=== PATIENT | female | born 1985 | race Caucasian/White ===

== ENCOUNTER 2021-12-19 08:10 | Emergency (ER) | payer OTHER, SELFPAY ==
[2021-12-19 08:14] VITALS: BP 137/71; PULSE 76; RESP 18; TEMP 36.3; O2SAT 100; BMI 39.3
--- NOTE | 2021-12-19 08:21 | DI.RAD.S_ITS ---
PROCEDURE: XR CHEST 1V INDICATIONS: chest pain TECHNIQUE: One view of the chest was acquired. COMPARISON: None. FINDINGS: Surgical changes and devices: None. Lungs and pleura: Lungs are clear. No pleural effusions or pneumothorax. Mediastinum: Mediastinal contours appear normal. Heart size is normal. Bones and chest wall: No suspicious bony lesions. Overlying soft tissues appear unremarkable. IMPRESSION: No acute cardiopulmonary findings. Dictated by: Celia Martínez M.D. on 12/19/2021 at 8:52 Approved by: Celia Martínez M.D. on 12/19/2021 at 8:53
[2021-12-19 08:34] LABS: Add Manual Diff / Slide Review NO; Basophils Absolute Auto 0 /uL (0-100); Basophils Percent Auto 0.6 % (0-2); Eosinophils Absolute Auto 100 /uL (0-450); Eosinophils Percent Auto 1.2 % (2-4); Hematocrit 31.1 % (36-46); Hemoglobin 10.2 g/dL (12.0-16.0); Lymphocytes Absolute Auto 1500 /uL (1100-4500); Lymphocytes Percent Auto 24.7 % (25-40); Mean Corpuscular HGB Conc 32.8 % (30-36); Mean Corpuscular Hemoglobin 22.7 PG (26-34); Mean Corpuscular Volume 69.2 fL (80-100); Monocytes Absolute Auto 500 /uL (0-900); Neutrophils Absolute Auto 4100 /uL (1500-7000); Neutrophils Percent Auto 65.5 % (50-75); Platelet Count 274 X10^3/uL (150-400); Red Cell Distribution Width 17.7 % (11.6-14.8); White Blood Cell Count 6.2 X10^3/uL (4.5-11.0)
[2021-12-19 08:43] LABS: Alanine Aminotransferase 16 IU/L (<35); Albumin Globulin Ratio 1.4 (1.0-2.8); Alkaline Phosphatase 56 U/L (38-126); Aspartate Aminotransferase 19 IU/L (14-36); BUN Creatinine Ratio 11.8 (6-22); Bilirubin Total 0.5 mg/dL (0.2-1.3); Blood Urea Nitrogen 9 mg/dL (7-17); Calcium 8.6 mg/dL (8.4-10.2); Carbon Dioxide 23 mmol/L (22-32); Chloride 106 mmol/L (98-107); Creatine Kinase 58 U/L (30-135); Estimated Glomerular Filt Rate > 60 mL/min (>60); Globulin 2.9 g/dL (1.7-4.1); Glucose 96 mg/dL (70-100); HEMOLYSIS < 15 (0-50); Lipase 94 U/L (23-300); Magnesium 1.9 mg/dL (1.6-2.3); Potassium 3.9 mmol/L (3.4-5.1); Sodium 138 mmol/L (137-145); Total Protein 6.9 g/dL (6.3-8.2)
[2021-12-19 08:54] LABS: COVID19 -Nasal RAPID Negative (Negative)
[2021-12-19 08:54] LABS: Troponin I < 0.012 ng/mL (0.01-0.034)
[2021-12-19 09:11] LABS: D Dimer < 200 ng/mL (<230)
[2021-12-19 09:14] LABS: Microcytosis 2+
[2021-12-19 09:35] VITALS: BP 120/70; PULSE 80; RESP 18; O2SAT 98
--- NOTE | 2021-12-19 09:53 | ED_ITS ---
HPI - Chest Pain General Chief Complaint: Chest Pain Stated Complaint: Upper right chest pain- intubated rt side last yr Time Seen by Provider: 12/19/21 08:31 Source: patient Mode of arrival: Ambulatory Limitations: no limitations History of Present Illness HPI narrative: This is a 36-year-old female with history of COVID pneumonia, ARDS that developed with right-sided pleural effusion patient had a chest tube at 1 point and was intubated and hospitalized for approximately a month in February. Patient states in the past 3 days she is developed right-sided chest pain with deep inspiration that she describes being right at the subcostal border radiates towards her back it is worse with deep inspiration. It is improved if she slouches forward and is painful to lay on her side. Patient denies fevers or chills. Movement otherwise does not seem to bother such as rotation. Patient denies any cough cold or congestion. No shortness of breath. No lightheadedness or passing out. No nausea or vomiting, no issues with bowel movements. No urinary symptoms. No swelling in extremities. No syncope or lightheadedness. 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 She denies any missed doses accept once several weeks ago. She is had a D and C for molar in the past, tonsillectomy but no other surgeries. No tobacco, alcohol or illicit other than CBD at night. Patient follows with Dr. Servin for her oncology and [facility] for her primary care. Related Data Home Medications Medication Instructions Recorded Confirmed multivitamin 1 tab PO DAILY 04/13/21 09/28/21 omeprazole 40 mg capsule,delayed 40 mg PO DAILY 04/13/21 09/28/21 release rivaroxaban 20 mg tablet (Xarelto) 20 mg PO DAILY 04/13/21 09/28/21 biotin 5 mg capsule 5 mg PO DAILY 09/28/21 09/28/21 cholecalciferol (vitamin D3) 125 250 mcg PO DAILY 09/28/21 09/28/21 mcg (5,000 unit) tablet (Vitamin D3) Allergies Allergy/AdvReac Type Severity Reaction Status Date / Time amoxicillin Allergy Unknown Verified 04/13/21 11:45 clindamycin Allergy Verified 04/13/21 11:47 ibuprofen Allergy Verified 09/28/21 15:29 [From DayQuil Sinus Pressure/Pain] Penicillins Allergy Verified 04/13/21 11:45 pseudoephedrine Allergy Verified 09/28/21 15:29 [From DayQuil Sinus Pressure/Pain] Review of Systems Review of Systems ROS Unobtainable: All systems reviewed & are unremarkable except as noted in HPI and below Patient History Social History Smoking Status: Never smoker Smoking Status: Never smoker Substance Use Type: does not use Exam Narrative Exam Narrative: GENERAL: Alert and oriented x three, female in mild distress HEENT: Head normocephalic, atraumatic, EOMI, pupils reactive, face symmetric, moist mucous membranes NECK: Supple, full range of motion CARDIOVASCULAR: Regular rate and rhythm without murmurs, rubs or gallops. No JVD. No swelling bilateral lower extremities. RESPIRATORY: Breath sounds equal bilaterally, no wheezes rales or rhonchi. Non reproducible chest pain. No tachypnea or accessory muscle use. ABDOMEN: Soft, nontender. Normoactive bowel sounds all 4 quadrants. No guarding or rebound, rigidity, no mass : No CVA tenderness EXTREMITIES: Normal range of motion, no clubbing or edema. Neurovascularly intact NEUROLOGICAL: Cranial nerves II through XII grossly intact. Moving all extremities SKIN: Warm, dry, no petechiae, no rashes or lesions. Initial Vital Signs Initial Vital Signs: Vital Signs Temperature 97.4 F L 12/19/21 08:14 Pulse Rate 76 12/19/21 08:14 Respiratory Rate 18 12/19/21 08:14 Blood Pressure 137/71 12/19/21 08:14 Pulse Oximetry 100 12/19/21 08:14 Oxygen Delivery Method 12/19/21 08:14 Course Orders Ordered: ED Orders 12/19/21 08:20 Complete Blood Count AUTO DIFF Stat Comprehensive Metabolic Panel Stat D Dimer Stat Lipase Stat Magnesium Stat Troponin & CK Cardiac Panel Stat 12/19/21 08:21 XR chest 1V Stat EKG-12 Lead Stat 12/19/21 08:25 COVID19 -Nasal RAPID/Pre-Proc Stat Vital Signs Vital signs: Vital Signs - 8 hr 12/19/21 08:14 12/19/21 09:35 Temperature 97.4 F L Pulse Rate 76 80 Respiratory Rate 18 18 Blood Pressure 137/71 120/70 Pulse Oximetry 100 98 Oxygen Delivery Method Room Air MDM - Chest Pain Lab Data Result diagrams: 12/19/21 08:20 12/19/21 08:20 Labs: Lab Results 12/19/21 12/19/21 12/19/21 Range/Units 08:20 08:20 08:20 WBC 6.2 (4.5-11.0) X10^3/uL RBC 4.50 (4.0-5.2) X10^6/uL Hgb 10.2 L (12.0-16.0) g/dL Hct 31.1 L (36-46) % MCV 69.2 L (80-100) fL MCH 22.7 L (26-34) PG MCHC 32.8 (30-36) % RDW 17.7 H (11.6-14.8) % Plt Count 274 (150-400) X10^3/uL Neut % (Auto) 65.5 (50-75) % Lymph % (Auto) 24.7 L (25-40) % [place] % (Auto) 8.0 (3-14) % Eos % (Auto) 1.2 L (2-4) % Baso % (Auto) 0.6 (0-2) % Neut # (Auto) 4100 (9452-2229) /uL Lymph # (Auto) 1500 (4457-9093) /uL [place] # (Auto) 500 (0-900) /uL Eos # (Auto) 100 (0-450) /uL Baso # (Auto) 0 (0-100) /uL RBC Morphology See below Microcytosis 2+ H D-Dimer < 200 (<230) ng/mL Sodium 138 (137-145) mmol/L Potassium 3.9 (3.4-5.1) mmol/L Chloride 106 (98-107) mmol/L Carbon Dioxide 23 (22-32) mmol/L BUN 9 (7-17) mg/dL Creatinine 0.76 (0.52-1.04) mg/dL Estimated GFR > 60 (>60) mL/min BUN/Creatinine Ratio 11.8 (6-22) Glucose 96 (70-100) mg/dL Calcium 8.6 (8.4-10.2) mg/dL Magnesium 1.9 (1.6-2.3) mg/dL Total Bilirubin 0.5 (0.2-1.3) mg/dL AST 19 (14-36) IU/L ALT 16 (<35) IU/L Alkaline Phosphatase 56 (38-126) U/L Total Creatine Kinase 58 (30-135) U/L CK-MB (CK-2) TNP CK-MB (CK-2) Rel Index TNP Troponin I < 0.012 (0.01-0.034) ng/mL Total Protein 6.9 (6.3-8.2) g/dL Albumin 4.0 (3.5-5.0) g/dL Globulin 2.9 (1.7-4.1) g/dL Albumin/Globulin Ratio 1.4 (1.0-2.8) Lipase 94 (23-300) U/L SARS-CoV-2 (PCR) (Negative) 12/19/21 Range/Units 08:25 WBC (4.5-11.0) X10^3/uL RBC (4.0-5.2) X10^6/uL Hgb (12.0-16.0) g/dL Hct (36-46) % MCV (80-100) fL MCH (26-34) PG MCHC (30-36) % RDW (11.6-14.8) % Plt Count (150-400) X10^3/uL Neut % (Auto) (50-75) % Lymph % (Auto) (25-40) % [place] % (Auto) (3-14) % Eos % (Auto) (2-4) % Baso % (Auto) (0-2) % Neut # (Auto) (8827-4423) /uL Lymph # (Auto) (3688-6655) /uL [place] # (Auto) (0-900) /uL Eos # (Auto) (0-450) /uL Baso # (Auto) (0-100) /uL RBC Morphology Microcytosis D-Dimer (<230) ng/mL Sodium (137-145) mmol/L Potassium (3.4-5.1) mmol/L Chloride (98-107) mmol/L Carbon Dioxide (22-32) mmol/L BUN (7-17) mg/dL Creatinine (0.52-1.04) mg/dL Estimated GFR (>60) mL/min BUN/Creatinine Ratio (6-22) Glucose (70-100) mg/dL Calcium (8.4-10.2) mg/dL Magnesium (1.6-2.3) mg/dL Total Bilirubin (0.2-1.3) mg/dL AST (14-36) IU/L ALT (<35) IU/L Alkaline Phosphatase (38-126) U/L Total Creatine Kinase (30-135) U/L CK-MB (CK-2) CK-MB (CK-2) Rel Index Troponin I (0.01-0.034) ng/mL Total Protein (6.3-8.2) g/dL Albumin (3.5-5.0) g/dL Globulin (1.7-4.1) g/dL Albumin/Globulin Ratio (1.0-2.8) Lipase (23-300) U/L SARS-CoV-2 (PCR) Negative (Negative) Imaging Data Chest x-ray: Radiologist's Impression: Allergy/Adv: amoxicillin, clindamycin, ibuprofen, Penicillins, pseudoephedrine (More??) Close Chest X-Ray (Signed) Celia Martínez - 12/19/21 Outside DI 05/18/21 [place] [address] XRay Report Signed Patient: Purnima Lopez MR#: [id number] : 1985 Acct:[id number] Age/Sex: 36 / F Date of Service: 12/19/21 Loc: ED Accession Number: [id number] ?? Procedure: XR chest 1V Ordering Provider: Iveth Shepard D.O. PROCEDURE:? XR CHEST 1V ? INDICATIONS:? chest pain ? TECHNIQUE:? One view of the chest was acquired.? ? COMPARISON:? None. ? FINDINGS:? ? Surgical changes and devices:? None.? ? Lungs and pleura:? Lungs are clear.? No pleural effusions or pneumothorax.? ? Mediastinum:? Mediastinal contours appear normal.? Heart size is normal.? ? Bones and chest wall:? No suspicious bony lesions.? Overlying soft tissues appear unremarkable.? ? IMPRESSION:? No acute cardiopulmonary findings. ? ? Dictated by: Celia Martínez M.D. on 12/19/2021 at 8:52 ? ? Approved by: Celia Martínez M.D. on 12/19/2021 at 8:53?? ECG Data Attestation: I personally reviewed and interpreted this ECG as follows: Prior ECG tracings: not available for review Interpretation: Sinus rhythm with a rate of 72 LA 150 QRS 82 and QTC of 416. No acute ST changes appreciated but patient has Q-waves with T-wave inversion in 3 AVF. No elevation. MDM Narrative Medical decision making narrative: This is a 36-year-old female with significant history for hospitalization with intubation who developed ARDS from COVID pneumonia. Patient was also found to have a clotting disorder at that time and has been on Xarelto since. She developed pleuritic chest pain about 3 days ago which is improved when she sludge is forward worsen when she is on her side left or right. Patient's labs including CBC, C a P, troponin and D-dimer do not show any acute changes, COVID negative today, chest x-ray does not show large pleural effusion, no clear scarr ing or changes. Patient and I discussed CT angio, risks versus benefits and at this time she defers. She has been appropriately anticoagulated making pulmonary emboli significantly less likely, there is no significant changes to patient's vital signs today. Coronary artery disease or ACS is unlikely. Patient does not have prior EKG for comparison she does have acute Q3, T3. Discharge Plan Departure Patient Disposition: Home Clinical Impression: Chest pain, pleuritic Instructions: DI for Atypical Chest Pain Activity Restrictions/Additional Instructions: Follow-up with your primary care physician and/or your oncologist regarding your symptoms. We did not perform a CT of your chest today as discussed. You can discuss with your physician if your symptoms are persistent and they or you would like to pursue this. You may take Tylenol up to a 1000 mg every 6 hours as needed for pain. Please return for worsening pain, lightheadedness or passing out, shortness of breath, coughing up blood, new swelling in her extremities room having new or worsening symptoms. Prescriptions: No Action multivitamin Tablet 1 tab PO DAILY omeprazole 40 mg Capsule,Delayed Release(Dr/Ec) 40 mg PO DAILY Xarelto 20 mg Tablet 20 mg PO DAILY Rx Instructions: must administer with evening meal biotin 5 mg Capsule 5 mg PO DAILY cholecalciferol (vitamin D3) [Vitamin D3] 125 mcg (5,000 unit) Tablet 250 mcg PO DAILY Referrals: Jayde Hercules MD [Primary Care Provider] - Visit Report Forms: Patient Portal/API
[2021-12-19 11:54] VITALS: BP 120/70; PULSE 79; RESP 16; O2SAT 100
== END 2021-12-19 11:55 | disposition home or self-care (01) ==
PROVIDERS: Emergency Provider Emergency Medicine; PCP Student in an Organized Health Care Education/Training Program
DX: R07.89 Other chest pain (principal); Z20.822 Contact with and (suspected) exposure to COVID-19
CPT/HCPCS: 36415; 71045; 80053; 82550; 83690; 83735; 84484; 85025; 85379; 87635; 93005; 93010; 99283; 99284; C9803

== ENCOUNTER 2022-01-21 12:12 | Emergency (ER) | payer OTHER, SELFPAY ==
[2022-01-21 12:17] VITALS: BP 134/87; PULSE 94; RESP 18; TEMP 37.2; O2SAT 99; BMI 39.3
[2022-01-21] MEDS: ACETAMINOPHEN 325 MG TABLET 975 MG PO (12:25)
--- NOTE | 2022-01-21 13:15 | DI.RAD.S_ITS ---
PROCEDURE: XR CHEST 1V INDICATIONS: covid +, h/o resp failure/ intubation TECHNIQUE: One view of the chest was acquired. COMPARISON: [facility], CR, XR CHEST 1V, 12/19/2021, 8:41. FINDINGS: Surgical changes and devices: None. Lungs and pleura: Lungs are clear. No pleural effusions or pneumothorax. Mediastinum: Mediastinal contours appear normal. Heart size is normal. Bones and chest wall: No suspicious bony lesions. Overlying soft tissues appear unremarkable. IMPRESSION: No acute cardiopulmonary abnormality. Dictated by: Mesfin Pierson M.D. on 01/21/2022 at 13:30 Approved by: Mesfin Pierson M.D. on 01/21/2022 at 13:31
[2022-01-21 14:03] LABS: Add Manual Diff / Slide Review NO; Basophils Absolute Auto 0 /uL (0-100); Basophils Percent Auto 0.6 % (0-2); Eosinophils Absolute Auto 0 /uL (0-450); Eosinophils Percent Auto 0.2 % (2-4); Hematocrit 29.9 % (36-46); Hemoglobin 9.7 g/dL (12.0-16.0); Lymphocytes Absolute Auto 900 /uL (1100-4500); Lymphocytes Percent Auto 14.2 % (25-40); Mean Corpuscular HGB Conc 32.5 % (30-36); Mean Corpuscular Hemoglobin 22.3 PG (26-34); Mean Corpuscular Volume 68.5 fL (80-100); Monocytes Absolute Auto 800 /uL (0-900); Monocytes Percent Auto 12.3 % (3-14); Neutrophils Absolute Auto 4900 /uL (1500-7000); Neutrophils Percent Auto 72.7 % (50-75); Platelet Count 246 X10^3/uL (150-400); Red Blood Cell Count 4.36 X10^6/uL (4.0-5.2); Red Cell Distribution Width 17.7 % (11.6-14.8); White Blood Cell Count 6.7 X10^3/uL (4.5-11.0)
[2022-01-21 14:05] LABS: HEMOLYSIS < 15 (0-50)
[2022-01-21 14:11] LABS: Alanine Aminotransferase 15 IU/L (<35); Albumin 4.1 g/dL (3.5-5.0); Albumin Globulin Ratio 1.4 (1.0-2.8); Alkaline Phosphatase 61 U/L (38-126); Aspartate Aminotransferase 19 IU/L (14-36); BUN Creatinine Ratio 8.6 (6-22); Bilirubin Total 0.5 mg/dL (0.2-1.3); Blood Urea Nitrogen 7 mg/dL (7-17); Calcium 8.9 mg/dL (8.4-10.2); Carbon Dioxide 21 mmol/L (22-32); Chloride 105 mmol/L (98-107); Creatine Kinase 49 U/L (30-135); Estimated Glomerular Filt Rate > 60 mL/min (>60); Globulin 2.9 g/dL (1.7-4.1); Glucose 100 mg/dL (70-100); Sodium 137 mmol/L (137-145)
[2022-01-21 14:24] LABS: NT-proBNP (BNP-Adult 18+) 340 pg/mL (<125); Troponin I < 0.012 ng/mL (0.01-0.034)
[2022-01-21 15:01] LABS: COVID19 -Nasal RAPID POSITIVE (Negative)
[2022-01-21 15:03] LABS: Hypochromasia 1+; Microcytosis 1+
[2022-01-21 15:19] VITALS: BP 118/66; PULSE 71; RESP 17; TEMP 36.8; O2SAT 97
--- NOTE | 2022-01-21 15:52 | ED_ITS ---
HPI - General Adult General Chief complaint: Upper Respiratory Symptoms Stated complaint: Covid positive / feeling awful Time Seen by Provider: 01/21/22 15:45 Source: patient Mode of arrival: Ambulatory Limitations: no limitations History of Present Illness HPI narrative: This is a 36-year-old female with history of COVID pneumonia, ARDS who had a right-sided pleural effusion and had chest tube while hospitalized and was intubated for approximately a month in February. Patient presents today with recurrent COVID infection. Patient started having a scratchy throat yesterday, she denies fever chills. No chest pain or shortness of breath. No nausea or vomiting, no diarrhea constipation or other urinary symptoms. No new swelling in her extremities. She is still on Xarelto as she was found to have factor 5 and lupus anticoagulant while hospitalized and had developed DVTs. She was told she could stop at 1 year and she is 2 weeks from that stopping point. Patient states that she is quite anxious she states she feels fairly well at this point. Her only other medication is omeprazole. Patient tested at home and was positive her symptoms started yesterday. 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 Related Data Home Medications Medication Instructions Recorded Confirmed multivitamin 1 tab PO DAILY 04/13/21 09/28/21 omeprazole 40 mg capsule,delayed 40 mg PO DAILY 04/13/21 09/28/21 release rivaroxaban 20 mg tablet (Xarelto) 20 mg PO DAILY 04/13/21 09/28/21 biotin 5 mg capsule 5 mg PO DAILY 09/28/21 09/28/21 cholecalciferol (vitamin D3) 125 250 mcg PO DAILY 09/28/21 09/28/21 mcg (5,000 unit) tablet (Vitamin D3) Previous Rx's Medication Instructions Recorded nirmatrelvir 300 mg (150 mg See Rx Instructions PO .COMPLEX 01/21/22 x2)-ritonavir 100 mg tablet,dose #30 ea pack(EUA) (Paxlovid) Allergies Allergy/AdvReac Type Severity Reaction Status Date / Time amoxicillin Allergy Unknown Verified 01/21/22 12:22 clindamycin Allergy Verified 01/21/22 12:22 Penicillins Allergy Verified 01/21/22 12:22 pseudoephedrine AdvReac Verified 01/21/22 12:22 [From DayQuil Sinus Pressure/Pain] Review of Systems Review of Systems ROS Unobtainable: All systems reviewed & are unremarkable except as noted in HPI and below Patient History Social History Smoking Status: Never smoker Smoking Status: Never smoker Substance Use Type: does not use Exam Narrative Exam Narrative: GENERAL: Alert and oriented x three, female in mild distress. HEENT: Head normocephalic, atraumatic, EOMI, pupils reactive, face symmetric, moist mucous membranes NECK: Supple, full range of motion CARDIOVASCULAR: Regular rate and rhythm without murmurs, rubs or gallops. No JVD. RESPIRATORY: Breath sounds equal bilaterally, no wheezes rales or rhonchi. ABDOMEN: Soft, nontender. Normoactive bowel sounds all 4 quadrants. No guarding or rebound, rigidity, no mass : No CVA tenderness EXTREMITIES: Normal range of motion, no clubbing or edema. Neurovascularly intact NEUROLOGICAL: Cranial nerves II through XII grossly intact. Moving all ex tremities SKIN: Warm, dry, no petechiae, no rashes or lesions. Initial Vital Signs Initial Vital Signs: Vital Signs Temperature 99.0 F 01/21/22 12:17 Pulse Rate 94 H 01/21/22 12:17 Respiratory Rate 18 01/21/22 12:17 Blood Pressure 134/87 01/21/22 12:17 Pulse Oximetry 99 01/21/22 12:17 Oxygen Delivery Method 01/21/22 12:17 Course Orders Ordered: ED Orders 01/21/22 13:15 XR chest 1V Stat 01/21/22 13:30 COVID19 -Nasal RAPID/Pre-Proc Stat 01/21/22 13:45 BNP [NT-proBNP (BNP-Adult 18+)] Stat Complete Blood Count AUTO DIFF Stat Comprehensive Metabolic Panel Stat Troponin & CK Cardiac Panel Stat 01/21/22 15:46 EKG-12 Lead Stat Discontinued Medications Acetaminophen (Acetaminophen 325 Mg Tablet) 975 mg PO NOW ONE Stop: 01/21/22 12:23 Last Admin: 01/21/22 12:25 Dose: 975 mg Documented By: ALEJANDRA Vital Signs Vital signs: Vital Signs - 8 hr 01/21/22 12:17 01/21/22 15:19 01/21/22 16:25 Temperature 99.0 F 98.3 F 98.4 F Pulse Rate 94 H 71 88 Respiratory Rate 18 17 18 Blood Pressure 134/87 118/66 120/78 Pulse Oximetry 99 97 99 Oxygen Delivery Method Room Air Room Air Room Air Medical Decision Making Lab Data Result diagrams: 01/21/22 13:45 01/21/22 13:45 Labs: Lab Results 01/21/22 01/21/22 01/21/22 Range/Units 13:30 13:45 13:45 WBC 6.7 (4.5-11.0) X10^3/uL RBC 4.36 (4.0-5.2) X10^6/uL Hgb 9.7 L (12.0-16.0) g/dL Hct 29.9 L (36-46) % MCV 68.5 L (80-100) fL MCH 22.3 L (26-34) PG MCHC 32.5 (30-36) % RDW 17.7 H (11.6-14.8) % Plt Count 246 (150-400) X10^3/uL Neut % (Auto) 72.7 (50-75) % Lymph % (Auto) 14.2 L (25-40) % [place] % (Auto) 12.3 (3-14) % Eos % (Auto) 0.2 L (2-4) % Baso % (Auto) 0.6 (0-2) % Neut # (Auto) 4900 (8645-9883) /uL Lymph # (Auto) 900 L (2904-9294) /uL [place] # (Auto) 800 (0-900) /uL Eos # (Auto) 0 (0-450) /uL Baso # (Auto) 0 (0-100) /uL RBC Morphology See below Hypochromasia 1+ H Microcytosis 1+ H Sodium 137 (137-145) mmol/L Potassium 4.0 (3.4-5.1) mmol/L Chloride 105 (98-107) mmol/L Carbon Dioxide 21 L (22-32) mmol/L BUN 7 (7-17) mg/dL Creatinine 0.81 (0.52-1.04) mg/dL Estimated GFR > 60 (>60) mL/min BUN/Creatinine Ratio 8.6 (6-22) Glucose 100 (70-100) mg/dL Calcium 8.9 (8.4-10.2) mg/dL Total Bilirubin 0.5 (0.2-1.3) mg/dL AST 19 (14-36) IU/L ALT 15 (<35) IU/L Alkaline Phosphatase 61 (38-126) U/L Total Creatine Kinase 49 (30-135) U/L CK-MB (CK-2) TNP CK-MB (CK-2) Rel Index TNP Troponin I < 0.012 (0.01-0.034) ng/mL NT-Pro-B Natriuret Pep 340 H (<125) pg/mL Total Protein 7.0 (6.3-8.2) g/dL Albumin 4.1 (3.5-5.0) g/dL Globulin 2.9 (1.7-4.1) g/dL Albumin/Globulin Ratio 1.4 (1.0-2.8) SARS-CoV-2 (PCR) Positive H (Negative) Imaging Data Chest x-ray: Radiologist's Impression: [address] [address] XRay Report Signed Patient: Purnima Lopez MR#: [id number] : 1985 Acct:[id number] Age/Sex: 36 / F Date of Service: 01/21/22 Loc: ED Accession Number: [id number] ?? Procedure: XR chest 1V Ordering Provider: Iveth Shepard D.O. PROCEDURE:? XR CHEST 1V ? INDICATIONS:? covid +, h/o resp failure/ intubation ? TECHNIQUE:? One view of the chest was acquired.? ? [facility] ? FINDINGS:? ? Surgical changes and devices:? None.? ? Lungs and pleura:? Lungs are clear.? No pleural effusions or pneumothorax.? ? Mediastinum:? Mediastinal contours appear normal.? Heart size is normal.? ? Bones and chest wall:? No suspicious bony lesions.? Overlying soft tissues appear unremarkable.? ? IMPRESSION:? No acute cardiopulmonary abnormality. ? ? Dictated by: Mesfin Pierson M.D. on 01/21/2022 at 13:30 ? ? Approved by: Mesfin Pierson M.D. on 01/21/2022 at 13:31?? ECG Data Attestation: I personally reviewed and interpreted this ECG as follows: Interpretation: Sinus rhythm T-wave inverted in 3 and AVF. No elevation. Rate of 60 9p are 172 QRS 86 QTC of 430. Prior EKG from 12/19/2021 appears similar. MDM Narrative Medical decision making narrative: This is a 36-year-old female who comes with complaint of COVID infection. Patient had significant COVID infection last February almost a year ago with prolonged hospitalization, intubation, pleural effusion with chest tube and is quite anxious about her new infection. Symptoms have only been present for 1 day she tested positive at home and here with us. She is asking about packs little bit we discussed risks versus benefits at length. She is on Xarelto she was found to have DVTs during her hospitalization and found to have factor 5 Leiden as well as lupus anticoagulant. She states she has been told that she can stop it at 1 year which is in 2 weeks. We discussed risks versus benefit of this as well. Patient is going to take prescription today she may also touch base with her physicians to make a final decision. We also discussed potential for rebound with this medication and that overall disease burden seems to be less with this round of COVID but based on her past hospitalization she does have risk factors seems appropriate candidate at this time. Discharge Plan Departure Patient Disposition: Home Clinical Impression: COVID-19 virus infection Activity Restrictions/Additional Instructions: Please follow-up with your physicians, if you would like you may call to discuss whether or not to start Paxlovid it does have side effects and risks versus benefits as we discussed and there has been rebound with this medication. If taken Paxlovid should be started within 5 days of symptom onset. Please stop your Xarelto while taking Paxlovid. Discussed with your physician about when to restart after finishing this prescription. Prescription was printed. Please return for new or worsening chest pain, shortness of breath, lightheadedness or passing out, persistent vomiting, black or bloody stools, O2 sats below 90% or other new or concerning symptoms. Prescriptions: New Paxlovid (EUA) 300 mg (150 mg x 2)-100 mg tablets,dose pack See Rx Instructions .ROUTE .COMPLEX Qty: 30 0RF Rx Instructions: take TWO 150 mg tablets of nirmatrelvir with ONE 100 mg tablet of ritonavir twice daily for 5 days No Action multivitamin Tablet 1 tab PO DAILY omeprazole 40 mg Capsule,Delayed Release(Dr/Ec) 40 mg PO DAILY Xarelto 20 mg Tablet 20 mg PO DAILY Rx Instructions: must administer with evening meal biotin 5 mg Capsule 5 mg PO DAILY cholecalciferol (vitamin D3) [Vitamin D3] 125 mcg (5,000 unit) Tablet 250 mcg PO DAILY Referrals: Jayde Hercules MD [Primary Care Provider] - Visit Report Forms: Patient Portal/API
[2022-01-21 16:25] VITALS: BP 120/78; PULSE 88; RESP 18; TEMP 36.9; O2SAT 99
== END 2022-01-21 16:27 | disposition home or self-care (01) ==
PROVIDERS: Emergency Provider Emergency Medicine; PCP Student in an Organized Health Care Education/Training Program
DX: U07.1 COVID-19 (principal); Z79.01 Long term (current) use of anticoagulants
CPT/HCPCS: 36415; 71045; 80053; 82550; 83880; 84484; 85025; 87635; 93005; 93010; 99283; 99284; C9803

== ENCOUNTER → 2024-01-24 15:37 | Outpatient (CLI) | payer OTHER, SELFPAY | LOC: RESP 15:38 | PROVIDERS: PCP Student in an Organized Health Care Education/Training Program | DX: J93.9 Pneumothorax, unspecified (principal); Z87.891 Personal history of nicotine dependence | CPT/HCPCS: 94060 ==

== ENCOUNTER → 2024-04-18 10:53 | Outpatient (CLI) | payer OTHER, SELFPAY ==
--- NOTE | 2024-04-18 10:55 | DI.US.S_ITS ---
PROCEDURE: US PELVIC COMPLETE INDICATIONS: heavy menstrual bleeding TECHNIQUE: Real-time scanning was performed of the pelvic organs, with image documentation. Additional endovaginal scanning was necessary due to incomplete visualization of the adnexal and endometrial structures by transabdominal scanning. COMPARISON: None. FINDINGS: Uterus: Uterus is anteverted and mildly enlarged in size at 9.3 x 3.9 x 5.0 cm. The myometrium is heterogenous. The endometrium measures 12 mm combined thickness. The endometrium is somewhat indistinct , with a 1.7 x 1.1 x 1.4 cm round, vascular lesion at the fundal region. There is a 2.4 x 2.4 x 3.0 cm mid anterior uterine body intramural fibroid. Ovaries: The right ovary measures 2.2 x 1.8 x 1.9 cm, with a calculated ovarian volume of 3.8 cc. The left ovary measures 4.6 x 2.3 x 3.3 cm, with a calculated ovarian volume of 18.5 cc. There is a 2.0 x 2.0 x 2.1 cm left corpus luteal cyst. The ovaries have a normal sonographic appearance. Less than 12 follicles can be seen in each ovary. No adnexal masses are seen. Other: No pathologic free abdominal or pelvic fluid. Small amount of free pelvic fluid, likely physiologic IMPRESSION: 1. Mildly enlarged uterus with a possible 1.7 cm endometrial polyp and a 3.0 cm mid anterior uterine body intramural fibroid. Gynecological consultation recommended. 2. 2.1 cm left corpus luteal cyst. Otherwise, no sonographic abnormality of the ovaries. We strive to produce accurate, complete, and clear reports of imaging services. To assist us in improving patient care, this report was composed using standard report templates and voice recognition software. Therefore, it may contain abnormal punctuation, insertions and/or omissions. Occasional wrong-word or sound-alike substitutions may occur. Though we review the report and make efforts to correct it, we do recommend that the report be read carefully in proper context to recognize any text inaccuracies. Dictated by: Tomas Bloom M.D. on 04/18/2024 at 17:01 Approved by: Tomas Bloom M.D. on 04/18/2024 at 17:05
== END ==
PROVIDERS: Referring Provider Student in an Organized Health Care Education/Training Program; Visit Provider Student in an Organized Health Care Education/Training Program
DX: N93.9 Abnormal uterine and vaginal bleeding, unspecified (principal); D68.9 Coagulation defect, unspecified; D25.1 Intramural leiomyoma of uterus; N83.12 Corpus luteum cyst of left ovary
CPT/HCPCS: 76856

== ENCOUNTER 2024-11-13 11:31 | Day surgery (SDC) | payer OTHER, SELFPAY ==
[2024-11-06 13:08] VITALS: BMI 43.5
[2024-11-13] VITALS (11 sets, daily range): BP systolic 116–148; BP diastolic 69–94; PULSE 63–89; RESP 12–20; TEMP 35.9–36.4; O2SAT 92–100; BMI 42.0
--- NOTE | 2024-11-13 | PATH_ITS ---
[facility] Accession Number: [id number] No. of containers..01 Tissue . 01 Material submitted: . uterus - UTERUS CERVIX BILATERAL FALLOPIAN TUBES . 01 Clinical history: . SITE CHANGED PER OP REPORT AND TISSUE RECEIVED CLIENT CONTACT ATTEMPTED SEE DICTATION NOTE AG . 01 Diagnosis: UTERUS, CERVIX, BILATERAL FALLOPIAN TUBES; HYSTERECTOMY AND BILATERAL SALPINGECTOMY: Uterine weight: 118 grams. Cervix: Mild chronic cervicitis; negative for dysplasia and malignancy. Endometrium: Proliferative phase endometrium. Benign endometrial polyp. Negative for atypia, hyperplasia, or malignancy. Benign intramural leiomyoma, 3.3 cm in diameter. Benign fallopian tubes and paratubal cysts. . [facility] 11/20/2024 1621 Local . 01 Electronically signed: . Brooklyn Rivas MD, Pathologist NPI- [id number] . 01 Gross description: . Received in formalin with two identifiers and uterus, cervix, and bilateral tubes (see note below), is an intact uterus (118 grams, 8.6 cm superior to inferior, 5.9 cm medial to lateral, 5.7 cm anterior to posterior) with attached cervix (3.5 x 3.3 cm), attached left fallopian tube (6.6 x 1.3 cm), attached right fallopian tube (7.3 x 1.2 cm), with no additional adnexa present. . The ectocervix is pink-arcos, and wrinkled with a patulous os, 1.0 cm in diameter. The anterior paracervical margin is inked blue while the posterior paracervical margin is inked black. The endocervical canal has arcos, herringbone mucosa and measures 2.7 cm in length. The endometrial cavity is 3.4 cm from cornu to cornu and 4.9 cm in length with pink-arcos, velvety endometrium that averages 0.2 thick. Detached pink-red soft tissue is identified within the endometrial cavity aggregating to 2.3 x 1.8 x 1.0 cm. The myometrium is arcos and trabecular measuring up to 2.9 cm thick with a single, well-circumscribed, white, whorled nodule located intramurally on the anterior side measuring 3.3 x 3.0 x 2.5 cm with no hemorrhage or necrosis identified. . Both tubes have smooth violaceous serosa with cystic structures up to 0.9 cm in greatest dimension filled with arcos serous fluid. The lumen are stellate and unremarkable. . Office Clinician sections are submitted as follows: A1: Anterior cervix. A2: Posterior cervix. A3: Anterior full-thickness section. A4: Posterior full-thickness section. A5: Detached tissue from endometrial cavity. A6: Nodule. A7: Left fallopian tube. A8: Right fallopian tube. ([id number]) . Note: Specimen processed as the tissue received is consistent with the reviewed operative note. /MRV 11/20/2024 [facility] Local . 01 Pathologist provided ICD-10: N93.9, N84.0 . 01 CPT . 421983 Specimen Comment: A courtesy copy of this report has been sent to [facility] Pathology Performed at: [address] [address], [place], [place] [id number] MD Carl Valladares MD Phone: [phone]
--- NOTE | 2024-11-13 12:26 | PM.PREOP ---
Pre-operative Note Interval Note History & Physical reviewed/Exam performed by Physician: Yes Changes to H&P: No H&P completed within 30 days and has changed as indicated here:: see H&P from 11/03/24
[2024-11-13] MEDS: CEFAZOLIN 1 GM VIAL 0.2 GM IV (12:37)
[2024-11-13] MEDS: ACETAMINOPHEN 325 MG TABLET 975 MG PO (12:41)
[2024-11-13] MEDS: SCOPOLAMINE 1 PATCH TOP (12:41)
[2024-11-13] MEDS: LACTATED RINGERS 1,000 ML 84 ML IV ×2 (12:43→14:29)
[2024-11-13 12:53] LABS: Add Manual Diff / Slide Review NO; Hematocrit 27.4 % (36-46); Hemoglobin 8.4 g/dL (12.0-16.0); Lymphocytes Absolute Auto 1500 /uL (1100-4500); Mean Corpuscular HGB Conc 30.8 % (30-36); Mean Corpuscular Hemoglobin 20.0 PG (26-34); Mean Corpuscular Volume 64.9 fL (80-100); Platelet Count 261 X10^3/uL (150-400)
[2024-11-13 13:02] LABS: Anisocytosis 3+; Hypochromasia 1+; Microcytosis 2+
[2024-11-13] MEDS: CEFAZOLIN 2 GM/100 ML PREMIX 100 ML IV (13:03)
--- NOTE | 2024-11-13 13:17 | SUR.OPER ---
Lithotomy on padded OR bed. [place] Pad Positioner under torso. Head on pillow, arms padded and tucked at sides. Legs secured in padded yellow fins stirrups. purple strap across shoulders
[2024-11-13] MEDS: BUPIVACAINE 0.25% (PF) VIAL 30 ML INJ (13:43)
[2024-11-13] MEDS: ONDANSETRON 4 MG/2 ML INJ IV (15:32)
[2024-11-13] MEDS: OXYCODONE IR 5 MG TABLET PO (15:32)
[2024-11-13] MEDS: hydrOXYzine 50 MG/ML INJ 25 MG IM (15:33)
--- NOTE | 2024-11-13 15:35 | PM.OP.1 ---
Operative Date/Time/Diagnoses Date of procedure: 11/13/24 Time of procedure: 13:00 Pre-op diagnosis: Abnormal uterine bleeding Uterine leiomyomata Endometrial polyp History of coagulopathy Post-op diagnosis: same Procedure & Clinicians Procedure: Robotic-assisted total laparoscopic hysterectomy Bilateral salpingectomy Same procedure(s) as scheduled: Yes Indications: 39yo F with AUB-L/P/C, counseled and consented for the above procedures. Surgeon: Neda Currie Click Yes if Unassisted: Yes Anesthesia Type: General Operative Notes Findings: Enlarged fibroid uterus with 4-5cm anterior fibroid noted. Normal appearing bilateral fallopian tubes and bilateral ovaries. Closure Type: primary Specimen(s): other (uterus, cervix, bilateral fallopian tubes) Applied: catheter Estimated Blood Loss (mL): 50 Blood products transfused: none Procedure in detail: The risks, benefits, indications and alternatives of the procedure were reviewed with the patient and informed consent was obtained. The pt was taken to the operating room where general anesthesia was obtained without difficulty. The pt was then placed in the low lithotomy position using Nav Stirrups and arms were tucked with padding. Sequential compression devices were placed bilaterally for VTE prophylaxis. She was then prepped and draped in the sterile fashion and a Tripp catheter was placed. She received 2g Ancef for surgical prophylaxis. A Melodeo-care uterine manipulator was placed through the cervix into the uterus for uterine manipulation. Attention was then turned to the patient?s abdomen were an 8mm skin incision was made in the superior aspect of the umbilicus after injecting 0.25% Marcaine. An 8mm trocar and sleeve were then carefully introduced into the peritoneal cavity under direct visualization at a 90-degree angle while tenting up the abdominal wall, however intraperitoneal placement could not be confirmed. Thus a Veress needle was then introduced into the peritoneal cavity, and a pneumoperitoneum was obtained with several liters of CO2 gas, maximum pressure of 15 mmHg. A trocar was then carefully introduced into the abdominal cavity, and upon entry into the peritoneal cavity, structures immediately below the incision were inspected and found to be free of injury. A survey of the patient's abdomen and pelvis was notable for the above findings. Four additional 8mm port sites were placed linearly across the abdomen in line with the umbilicus, under direct laparoscopic guidance. The [employer] surgical robot was then docked and instruments inserted under direct visualization. Control of the robot was then turned over to the console. The left fallopian tube was grasped and ligated from the mesosalpinx. The utero-ovarian and round ligaments were then clamped, cut, and ligated. The anterior broad ligament was then incised along the bladder reflection and the bladder was dissected off the lower uterine segment until endopelvic fascia was visualized. The uterine artery was then identified, skeletonized, and ligated on the left. The uterosacral ligament and cardinal ligament were transected on the left. Attention was then directed to the right side, where the same procedure was done to clamp, cut, and ligate the right fallopian tube and right side of the uterus. The anterior colpotomy was then made using monopolar scissors and continued circumferentially inferior to the cervix using the colpotomy ring as a guide. The entire cervix and uterus was then successfully amputated and delivered through the vagina. The 0 Stratafix suture was then introduced into the abdominal cavity, and the vaginal cuff was then closed robotically with the barbed suture in a running fashion. The suture needle was removed via the lateral port under direct visualization. The pelvis was then irrigated and suctioned. Excellent hemostasis was noted. The surgical robot was then undocked, and the pneumoperitoneum was released. The ports were then removed, and the skin incisions were reapproximated using 4-0 monocryl suture in a subcuticular fashion and covered with Dermabond. At the completion of the case the sponge and needle counts were correct x 2, and all instruments were confirmed to be removed from the vagina. The patient was taken to the PACU in stable condition. Complications: none Post-operative Condition: stable Disposition: PACU Plan for aftercare: Plan for discharge home in the morning.
[2024-11-13 18:05] LABS: Estimated Glomerular Filt Rate > 60 mL/min (>60)
[2024-11-13] MEDS: OXYCODONE IR 5 MG TABLET 10 MG PO (18:06)
--- NOTE | 2024-11-13 18:15 | PC.NURSE ---
Pt to room at 1555 Drowsy, awakens when spoken to. SL x 2 L hand and R hand Med w/ Oxy 10mg po at 1815 will assess. Call light w/in reach, Pt calls appropriately for needs, Contnue w/plan of care.
[2024-11-13] MEDS: KETOROLAC 30 MG/ML VIAL IV (21:22)
[2024-11-13] MEDS: ACETAMINOPHEN 325 MG TABLET 650 MG PO (21:22)
[2024-11-14 01:30] VITALS: BP 146/89; PULSE 67; RESP 18; TEMP 36.3; O2SAT 99
[2024-11-14] MEDS: KETOROLAC 30 MG/ML VIAL IV ×2 (01:44→06:59)
[2024-11-14] MEDS: ACETAMINOPHEN 325 MG TABLET 650 MG PO ×2 (01:44→06:59)
[2024-11-14] MEDS: OXYCODONE IR 5 MG TABLET PO ×3 (01:44→12:08)
[2024-11-14 08:00] VITALS: BP 121/62; PULSE 61; RESP 19; TEMP 36.4; O2SAT 100
[2024-11-14] MEDS: ENOXAPARIN 40 MG/0.4 ML SYRINGE SUBCUT (08:10)
--- NOTE | 2024-11-14 08:31 | CM.DANOTE ---
Initial DCP Assessment Note Pt is a 39 yo female, resident of [place], now POD#1 from planned total lap hysterectomy with bilateral salpingectomy. PCP: Levi CARTER Provider Payer: Trenton Dick Reviewed chart, patient lives in [place], independently with spouse and plans to return upon discharge. No barriers identified at this time to patient's safe discharge home w/family to assist throughout her recovery; close outpatient f/u recommended. Social work team will plan to follow clinical course closely in case any DC needs or concerns arise. ROHIT Dinero Discharge Planning/Care Management CM Discharge Assessment Start: 11/13/24 11:44 Freq: Status: Active Protocol: Document 11/14/24 08:24 ELSIE (Rec: 11/14/24 08:25 ELSIE [id number]) Discharge Planning Assessment Assigned Discharge ROHIT Mccormack Meat Pickler DPOA/Assigned Vinod Lopez, spouse Designee Name Contact Information [phone] Advance Directives? No History Provided By Patient,Medical Record Prior Living House Arrangements Household Members spouse Type of Drives own vehicle transporation used prior to admit Independent with ADL Yes 's Is patient alert and Yes oriented? Discharge Plan Home Transportation Family Arrangement Referrals Initiated None needed
--- NOTE | 2024-11-14 09:55 | P.DS_ITS ---
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 She reports feeling well, pain well controlled on oral pain meds. She is ambulating, tolerating regular diet, though no flatus yet. Is voiding spontaneously, with minimal vaginal bleeding. Thus will plan for discharge home today. Discharge Providers Provider Discharge Date: 11/14/24 Primary care physician: Levi CARTER Provider Discharge provider: Neda Currie DO Summary Hospital Course Discharge Diagnosis: Status post robotic assisted total laparoscopic hysterectomy with bilateral salpngectomy Chronic anemia due to menstrual blood loss Status at Discharge Cognitive/behavioral status at discharge: oriented Functional status at discharge: independent ambulation Overall status at discharge: patient is progressing back to baseline Time Spent with Patient Time spent: Less than 30 minutes Exam Vital Signs (past 8 hours): Oxygen Delivery Method Room Air Oxygen Flow Rate 0 vitals reviewed, within normal parameters Const General: cooperative, healthy appearing and No acute distress Resp Effort & Inspection: normal respiratory effort and able to speak in complete sentences GI Other: soft, appropriately tender, minimally distended Skin Other: 5 laparoscopic incisions intact and covered with dermabond Neuro Cognition: normal cognition Speech: speech normal Extrem General: normal to inspection Psych Mood: congruent mood Affect: normal affect Objective Labs 11/13/24 12:35 11/13/24 17:43 Labs: Laboratory Results - last 24 hr 11/13/24 11/13/24 12:35 17:43 WBC 5.9 RBC 4.21 Hgb 8.4 L Hct 27.4 L MCV 64.9 L MCH 20.0 L MCHC 30.8 RDW 18.1 H Plt Count 261 Neut % (Auto) 60.9 Lymph % (Auto) 25.5 Lawrence % (Auto) 9.7 Eos % (Auto) 2.3 Baso % (Auto) 1.6 Neut # (Auto) 3600 Lymph # (Auto) 1500 Lawrence # (Auto) 600 Eos # (Auto) 100 Baso # (Auto) 100 RBC Morphology Not Reportable Hypochromasia 1+ H Anisocytosis 3+ H Microcytosis 2+ H Creatinine 0.73 Estimated GFR > 60 Blood Type A Positive Antibody Screen Negative [facility] Medical History (Updated 11/06/24 @ 13:22 by Gia Tovar RN) ARDS (adult respiratory distress syndrome) Pneumonia due to COVID-19 virus (~02/2021) History of deep vein thrombosis Kqpz-Epcf-Zcgy syndrome Vaginal delivery Lupus anticoagulant positive Factor V Leiden mutation Obesity, Class III, BMI 40-49.9 (morbid obesity) Surgical History Hx of tonsillectomy History of dilation and curettage Social History household members: spouse Smoking Status: Former smoker alcohol intake: current substance use type: marijuana (nightly to help with sleep) Discharge Assessment & Plan Assessment and Plan Assessment: 39yo F s/p RA-TLH/BS doing well postoperatively. Plan of Treatment: Plan for discharge home today -plan for total of 10 days postoperative lovenox for VTE prophylaxis -will administer one dose of IV iron prior to discharge due to her chronic anemia -follow-up in the office as scheduled Discharge Plan Discharge Plan Patient Disposition: Home Provider Discharge Comment: Take ibuprofen 600mg every 6hrs and acetaminophen 650mg every 6hrs, with oxycodone 5-10mg every 4hrs as needed for pain. Avoid placing anything in the vagina for 6 weeks. Avoid lifting greater than 20lbs for at least 6wks. Discharge orders & Medications Discharge Orders: Discharge (Order); Ordered 11/14/24 Ordered By: Neda Currie Prescriptions: New oxycodone 5 mg Tablet 5 mg PO Q4HR PRN (Reason: Pain, Moderate (4-6)) Qty: 10 0RF enoxaparin [Lovenox] 40 mg/0.4 mL Syringe 40 mg SUBCUT DAILY 9 Days Qty: 4 0RF Continued multivitamin Tablet 1 tab PO DAILY omeprazole 40 mg Capsule,Delayed Release(Dr/Ec) 40 mg PO DAILY cholecalciferol (vitamin D3) [Vitamin D3] 125 mcg (5,000 unit) Tablet 250 mcg PO DAILY Discontinued Xarelto 20 mg Tablet 20 mg PO DAILY Rx Instructions: must administer with evening meal Follow up/Referrals: Neda Currie DO [Physician, AGRICULTURE ENGINEER] Diet/Activity/Treatments Diet: Diet as Tolerated Activity: As tolerated. Skin/Wound/Dressing Care Skin care: You may shower normally. Report to your healthcare provider any signs of infection, such as:: chills, fever, increased pain, unusual drainage and unusual redness Dressing: Skin glue covers your incisions and this will peel off after 1 week. Visit Report/Discharge Packet Instructions: DI for Hysterectomy, DI for Laparoscopy, DI for Prescription Opioid Use Stand Alone Forms: Patient Portal/API Print Language: Tunisian Discharge Data Primary Care Provider: Levi Moss Attending Provider: Neda Currie VTE Deep Vein Thrombosis/Pulmonary Embolism Present on Admission: No IH PROFEE Charge Codes Discharge inpatient/observation: 15436
[2024-11-14] MEDS: IRON SUCROSE 300 MG in SODIUM CHLORIDE 0.9% 250 ML 176.667 MG IV (10:42)
[2024-11-14] MEDS: IBUPROFEN 600 MG TABLET PO (12:08)
== END 2024-11-14 12:38 | disposition home or self-care (01) ==
LOC: OR 11:33 → AC 11:36
PROVIDERS: Referring Provider Student in an Organized Health Care Education/Training Program; Visit Provider Student in an Organized Health Care Education/Training Program
PROC: 0UT94ZZ Resection of Uterus, Percutaneous Endoscopic Approach (ICD-10-PCS; CPT 58571; principal; 2024-11-13 13:15)
DX: N93.9 Abnormal uterine and vaginal bleeding, unspecified (principal); D25.1 Intramural leiomyoma of uterus; N84.0 Polyp of corpus uteri; D50.0 Iron deficiency anemia secondary to blood loss (chronic); N72 Inflammatory disease of cervix uteri; K21.9 Gastro-esophageal reflux disease without esophagitis; Q87.89 Other specified congenital malformation syndromes, not elsewhere classified; D68.51 Activated protein C resistance; E66.01 Morbid (severe) obesity due to excess calories; Z68.41 Body mass index [BMI] 40.0-44.9, adult; Z86.718 Personal history of other venous thrombosis and embolism; Z79.01 Long term (current) use of anticoagulants; Z87.891 Personal history of nicotine dependence
CPT/HCPCS: 58571; S2900; 36415; 81025; 82565; 85025; 86850; 86900; 86901; J0330; J0690; J1100; J1171; J1650; J1756; J1885; J2250; J2405; J2704; J3010; J3410; J3490

== ENCOUNTER → 2024-11-20 17:11 | Outpatient (CLI) | payer OTHER, SELFPAY ==
[2024-11-13 16:58] VITALS: BMI 42.0
[2024-11-20 17:28] LABS: Add Manual Diff / Slide Review NO; Hematocrit 28.0 % (36-46); Hemoglobin 8.8 g/dL (12.0-16.0); Lymphocytes Absolute Auto 1300 /uL (1100-4500); Mean Corpuscular HGB Conc 31.3 % (30-36); Mean Corpuscular Hemoglobin 20.8 PG (26-34); Mean Corpuscular Volume 66.4 fL (80-100); Platelet Count 276 X10^3/uL (150-400)
[2024-11-20 18:02] LABS: Appearance Urine UA CLEAR; Bilirubin Urine UA NEGATIVE (NEGATIVE); Color Urine UA YELLOW; Glucose Urine UA NEGATIVE (Negative); Ketones Urine UA NEGATIVE (NEGATIVE); Leukocyte Esterase Urine UA TRACE (NEGATIVE); Nitrite Urine UA NEGATIVE (Negative); Occult Blood Urine UA TRACE-INTACT (Negative); Protein Urine UA NEGATIVE (Negative); Specific Gravity Urine UA 1.010 (1.000-1.035); Urobilinogen Urine UA 0.2 E.U./dL (0.2); pH Urine UA 6.0 (4.5-8.0)
[2024-11-20 18:12] LABS: Culture Indicated Urine Specimen Cultured
[2024-11-20 21:13] LABS: Microcytosis 2+
== END ==
PROVIDERS: Referring Provider Obstetrics & Gynecology; Visit Provider Obstetrics & Gynecology
DX: G89.18 Other acute postprocedural pain (principal)
CPT/HCPCS: 36415; 81001; 85025; 87086